=== PATIENT | male | born 2000 | race Caucasian/White ===

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

== ENCOUNTER 2019-06-22 18:12 | Emergency (ER) | payer MEDICAID, OTHER | END 2019-06-22 19:07 | disposition home or self-care (01) | LOC: ED 18:12 ==